=== PATIENT | female | born 1975 | race Caucasian/White ===

== ENCOUNTER → 2023-05-27 08:04 | Outpatient (REF) | payer BC, SELFPAY | LOC: WDC 08:04 | PROVIDERS: ATTENDING PHYSICIAN Obstetrics & Gynecology Gynecology; FAMILY PHYSICIAN Family Medicine | DX: R92.2 Inconclusive mammogram (principal) | CPT/HCPCS: 76641 ==

== ENCOUNTER → 2023-07-20 07:59 | Outpatient (REF) | payer BC, SELFPAY | LOC: HWRAD 07:59 | PROVIDERS: ATTENDING PHYSICIAN Family Medicine | DX: G44.52 New daily persistent headache (NDPH) (principal) | CPT/HCPCS: 70450 ==

== ENCOUNTER → 2023-11-09 12:00 | Outpatient (REF) | payer BC, SELFPAY | LOC: DHSLP 12:00 | PROVIDERS: ATTENDING PHYSICIAN Internal Medicine Critical Care Medicine; FAMILY PHYSICIAN Family Medicine | DX: G47.19 Other hypersomnia (principal); R06.83 Snoring | CPT/HCPCS: 95800 ==

== ENCOUNTER → 2023-12-21 14:19 | Outpatient (REF) | payer BC, SELFPAY | LOC: WDC 14:19 | PROVIDERS: ATTENDING PHYSICIAN Obstetrics & Gynecology Gynecology; FAMILY PHYSICIAN Family Medicine | DX: Z12.31 Encounter for screening mammogram for malignant neoplasm of breast (principal); R92.8 Other abnormal and inconclusive findings on diagnostic imaging of breast | CPT/HCPCS: 76642; 77063; 77067 ==

== ENCOUNTER → 2023-12-31 08:19 | Outpatient (REF) | payer BC, SELFPAY | LOC: WDC 08:19 | PROVIDERS: ATTENDING PHYSICIAN Obstetrics & Gynecology Gynecology; FAMILY PHYSICIAN Family Medicine | DX: R92.8 Other abnormal and inconclusive findings on diagnostic imaging of breast (principal) | CPT/HCPCS: 76642 ==

== ENCOUNTER → 2024-01-11 08:10 | Outpatient (REF) | payer BC, SELFPAY ==
--- NOTE | 2024-01-11 13:33 | OID.BR.INTR ---
[facility] - Initial
- -
Date of Contact: 01/11/24
Met with patient. Patient given written information on navigator services available at [facility]. Will follow up as needed per protocol.
== END ==
LOC: WDC 08:10
PROVIDERS: ATTENDING PHYSICIAN Obstetrics & Gynecology Gynecology; FAMILY PHYSICIAN Family Medicine
DX: N63.22 Unspecified lump in the left breast, upper inner quadrant (principal)
CPT/HCPCS: 88305; 19083; 88341; 88342; A4648

== ENCOUNTER → 2024-02-08 08:42 | Outpatient (REF) | payer BC, SELFPAY | LOC: RAD 08:42 | PROVIDERS: ATTENDING PHYSICIAN Family Medicine | DX: M54.2 Cervicalgia (principal) | CPT/HCPCS: 76536 ==

== ENCOUNTER 2024-03-11 02:30 | Emergency (ER) | payer BC, SELFPAY ==
[2024-03-11 02:30] VITALS: BMI 28.7
[2024-03-11 02:32] VITALS: BP 135/99
--- NOTE | 2024-03-11 03:55 | ED.GENMED ---
History of Present Illness
General
Chief Complaint: Abdominal Symptoms
Source: patient
Exam Limitations: none
Time Seen by Provider: 03/11/24 03:48
Nursing documentation reviewed up to this point in time: agreed with
History of Present Illness
History of Present Illness:
This is a 48-year-old woman who has been maintained on Zepbound for weight loss for a number of months. Maintained on 7.5 mg for at least the past 2 months but then titrated up to 10 mg earlier this week. She states almost immediately after 10 mg
injection on Wednesday, March 07 she began to feel somewhat dizzy but then developed nausea the following day on Wednesday with intractable vomiting that began March 09. She did pass a loose stool on as well as several loose
stools throughout the day yesterday. She denies hematemesis nor hematochezia. She does admit to generalized crampy abdominal pain and feeling bloated. She has not had a fever nor chills, no back pain, no dysuria and urgency and or hematuria. No
history of similar episodes in the past and no close contacts with similar symptoms.
No recent travel nor recent antibiotic use.
She denies risk of .
Along with Zepbound she is maintained on famotidine 40 mg and Zoloft 75 mg. With onset of nausea she has not taken her Zoloft for the past 5 days.
She did take Zofran 8 mg prior to arrival without relief of nausea.
Past History
Past History
ED Past Medical History: GERD, Psychiatric and Other (Obesity)
ED Past Surgical History: None
Social History
Tobacco: Non-smoker
Personal:
Living: with family
Employment: Employed
Family History
Family History: Other (Noncontributory)
Phy Exam
Physical Exam
Physical Exam:
GENERAL: 48-year-old woman appears her stated age, awake and alert, appears in mild to moderate distress related to pain.
EYE: anicteric
NECK: Supple, nontender, no meningismus, no significant adenopathy.
ENT: posterior pharynx is clear, oral mucosa is minimally dry. No rhinorrhea.
CARDIAC: Regular rate and rhythm. no murmur.
LUNGS: Clear breath sounds bilaterally, no acute respiratory distress, no wheezes/rales/rhonchi
ABDOMEN: Soft, mildly distended, moderate generalized tenderness to palpation, no r/g, no cvat. normoactive BS.
NEUROLOGICAL: Alert and oriented x3, no focal neuro deficits. Gait is steady.
SKIN: Warm and dry, normal color, skin intact. No rash.
MUSCULOSKELETAL: No C/C/E. peripheral pulses are full and equal b/l. No palpable tenderness.
PSYCH: Normal and appropriate interaction.
Course
Orders/Labs/Results
Orders:
Orders
03/11/24 03:54
0.9% Sodium Chloride 1000 ml [Nss] 1,000 ml IV BOLUS
Diphenhydramine [Benadryl] 25 mg IV NOW STA
Prochlorperazine [Compazine] 10 mg IV NOW STA
Test Result ONCE
03/11/24 03:55
CT Abd/pelvis W Iv Cont Urgent
Comment:
Reason For Exam: gen abd pain, N/V/D
Urinalysis Reflex To Culture Urgent
03/11/24 04:16
Complete Blood Count/With Diff Urgent
Comprehensive Metabolic Panel Urgent
HCG, Serum Qualitative Screen Urgent
Lactic Acid Urgent
Lipase Urgent
Abnormal Lab Results
03/11/24
04:16
Absolute Neuts (auto) 7.4 H 10^3/uL
(1.4-6.5)
Absolute Lymphs (auto) 1.0 L 10^3/uL
(1.2-3.4)
Absolute Monos (auto) 0.7 H 10^3/uL
(0.1-0.6)
Neutrophils % 80.0 H %
(42.2-75.2)
Lymphocytes % 10.3 L %
(20.5-51.1)
Alkaline Phosphatase 34 L U/L
(38-126)
03/11/24 04:16
03/11/24 04:16
Vital Signs
Initial and Last Documented VS:
Initial Vital Signs
Pulse Resp BP Pulse Ox
116 24 135/99 99
03/11/24 02:32 03/11/24 02:32 03/11/24 02:32 03/11/24 02:32
Last Documented Vital Signs
Pulse Resp BP Pulse Ox
116 18 112/74 98
03/11/24 02:32 03/11/24 04:36 03/11/24 04:36 03/11/24 04:36
MDM/Problems Addressed
Differential Diagnosis Includes:
Concern for adverse reaction to Zepbound, acute gastroenteritis, acute colitis, small bowel obstruction, dehydration, electrolyte abnormality, acute kidney injury.
Will initiate IV fluids, IV Compazine for nausea.
Will check labs and will plan for CT abdomen pelvis with IV contrast.
*Radiology
Radiology exam reviewed: radiology read reviewed
*Pulse Oximetry
Patient hypoxic: no
*Critical Care Note
Total Time (30-74mins, 75-104mins- exclusive of procedures): Not Applicable
Update Note
Update Note:
Labs are reassuring with normal white blood cell count, unremarkable chemistries.
CAT scan shows acute gastroenteritis without obstruction or perforation. Normal appendix, no diverticulitis.
I suspect viral versus foodborne gastroenteritis. I am not convinced that symptoms are related to Zepbound. Nonetheless, recommend she hold off on Zepbound at least over the next week perhaps 2 weeks and then return to 7.5 mg weekly.
Recommend limiting diet to clear liquids over the next 1 to 2 days, slowly advance to soft bland foods. Brat diet discussed.
Will prescribe Compazine for as needed nausea and recommend she take [id number] Imodium for as needed diarrhea.
Prompt follow-up with PCP for recheck.
ED Attending Note
-
Portions of this chart may have been created with voice recognition software.� Occasional wrong word or��sound alike� substitutions may have occurred due to the inherent limitations of voice recognition software.
Discharge Plan
Departure
Patient Disposition: Home (Routine Discharge)
Date of Disposition: 03/11/24
Time of Disposition: 06:08
Patient with high blood pressure during this ER visit?: No
Condition: Good
Discharge Problem:
Acute gastroenteritis
Instructions: Viral gastroenteritis in adults, Clear Liquid Diet
Prescriptions:
New
prochlorperazine maleate [Compazine] 10 mg tablet
10 mg PO Q6H PRN (Reason: nausea and vomiting) Qty: 14 0RF
No Action
famotidine 40 mg Tablet
40 mg PO DAILY
Zepbound
Zoloft
75 mg PO DAILY
Referrals:
Deanna Cha MD [Family Provider] - Call in 1-3 days for appt
Interventions
Interventions:
*Risk Screen - Suicide Last Done: 03/11/24 02:32
*General Assessment Last Done: 03/11/24 02:32
*Neglect/Abuse Screening Last Done: 03/11/24 02:32
ED- Fall Risk Assessment Last Done: 03/11/24 03:43
*ED COVID-19 Vaccine History Last Done: 03/11/24 03:43
YJ-Hlppji-Jgtznhatzj Assessment Last Done: 03/11/24 03:43
Discharge Date and Time
Print Language: HEBREW
[2024-03-11] MEDS: NSS 1000 IV (04:12)
[2024-03-11] MEDS: BENADRYL 25 MG IV (04:12)
[2024-03-11] MEDS: COMPAZINE 10 MG IV (04:13)
[2024-03-11 04:29] LABS: % Basophils 0.4 % (0-2); % Eosinophils 1.1 % (0-6); % Immature Granulocytes 0.3 % (0-0.5); % Lymphocytes 10.3 % (20.5-51.1); % Monocytes 7.9 % (1.7-9.3); Absolute Eosinophils 0.1 10^3/uL (0-0.7); Absolute Monocytes 0.7 10^3/uL (0.1-0.6); Absolute Neutrophils 7.4 10^3/uL (1.4-6.5); Hematocrit 39.6 % (37.0-47.0); Hemoglobin 13.5 g/dL (12.0-16.0); Mean Corp Hgb Conc. 34.1 g/dL (33.0-37.0); Mean Corpuscular Hgb 29.8 pg (27.0-31.0); Mean Corpuscular Volume 87.4 fL (81.0-99.0); Mean Platelet Volume 9.4 fL (7.4-10.4); Nucleated Red Blood Cells % 0 %; Platelet Count 275 10^3/uL (130-400); Red Blood Cell Count 4.53 10^6/uL (4.20-5.40); White Blood Cell Count 9.3 10^3/uL (4.8-10.8)
[2024-03-11 04:36] VITALS: BP 112/74
[2024-03-11 04:42] LABS: Lactic Acid 1.1 mmol/L (0.7-2.0)
[2024-03-11 04:44] LABS: HCG, Serum Qualitative Screen Negative
[2024-03-11 04:45] LABS: ALT (SGPT) 15 U/L (0-35); AST (SGOT) 23 U/L (14-36); Albumin 4.4 g/dl (3.5-5.0); Alkaline Phosphatase 34 U/L (38-126); Blood Urea Nitrogen 14 mg/dl (7-17); Calcium 9.9 mg/dl (8.4-10.2); Carbon Dioxide 22 mmol/L (22-30); Chloride 107 mmol/L (98-107); Estimated Creatinine Clearance 96 ml/min; Glucose 97 mg/dl (70-99); Lipase 71 U/L (23-300); Potassium 4.1 mmol/L (3.5-5.1); Sodium 141 mmol/L (135-145); Total Bilirubin 0.5 mg/dl (0.2-1.3); eGFR > 60.00
[2024-03-11 06:07] VITALS: BP 104/72
== END 2024-03-11 06:10 | disposition home or self-care (01) ==
LOC: EMR 02:30
PROVIDERS: EMERGENCY PHYSICIAN Emergency Medicine; FAMILY PHYSICIAN Hospitalist
DX: K52.9 Noninfective gastroenteritis and colitis, unspecified (principal); K21.9 Gastro-esophageal reflux disease without esophagitis; Z79.899 Other long term (current) drug therapy
CPT/HCPCS: 74177; 80053; 83605; 83690; 84703; 85025; 96374; 96375; 99284; Q9967

== ENCOUNTER → 2024-09-22 12:54 | Outpatient (REF) | payer BC, SELFPAY | LOC: WDC 12:54 | PROVIDERS: ATTENDING PHYSICIAN Obstetrics & Gynecology Gynecology; FAMILY PHYSICIAN Hospitalist | DX: R92.2 Inconclusive mammogram (principal) | CPT/HCPCS: 76641 ==

== ENCOUNTER → 2024-12-21 15:08 | Outpatient (REF) | payer BC, SELFPAY | LOC: WDC 15:08 | PROVIDERS: ATTENDING PHYSICIAN Obstetrics & Gynecology Gynecology | DX: Z12.31 Encounter for screening mammogram for malignant neoplasm of breast (principal) | CPT/HCPCS: 77063; 77067 ==

== ENCOUNTER 2025-01-04 12:51 | Emergency (ER) | payer BC, SELFPAY ==
[2025-01-04 12:52] VITALS: BP 130/80
[2025-01-04 13:06] LABS: Hematocrit 34.4 % (37.0-47.0); Hemoglobin 11.4 g/dL (12.0-16.0); Mean Corp Hgb Conc. 33.1 g/dL (33.0-37.0); Mean Corpuscular Volume 83.3 fL (81.0-99.0); Nucleated Red Blood Cells % 0 %; Platelet Count 222 10^3/uL (130-400); Red Cell Dist. Width 13.3 % (11.5-14.5)
[2025-01-04 13:28] LABS: HCG, Serum Qualitative Screen Negative
[2025-01-04 13:30] LABS: ALT (SGPT) 13 U/L (0-35); AST (SGOT) 17 U/L (14-36); Albumin 3.9 g/dl (3.5-5.0); Alkaline Phosphatase 35 U/L (38-126); Blood Urea Nitrogen 10 mg/dl (7-17); Calcium 9.5 mg/dl (8.4-10.2); Carbon Dioxide 26 mmol/L (22-30); Chloride 108 mmol/L (98-107); Glucose 94 mg/dl (70-99); Potassium 3.9 mmol/L (3.5-5.1); Sodium 140 mmol/L (135-145); Total Protein 6.8 g/dl (6.3-8.2); eGFR > 60.00
[2025-01-04 13:41] LABS: Troponin I < 0.012 ng/ml
[2025-01-04 13:45] VITALS: BP 121/87
--- NOTE | 2025-01-04 13:59 | ED.GENMED ---
History of Present Illness
<Yfn Greene MD - Last Filed: 01/04/25 16:29>
General
Chief Complaint: Chest Problem
Source: patient
Exam Limitations: none
Time Seen by Provider: 01/04/25 13:59
History of Present Illness
History of Present Illness:
49-year-old female started with COVID-like symptoms congestion runny nose achy 6 days ago. Near that time she also developed numbness in her left lateral hand and some pain at the left shoulder and pain with movement of the left arm. Some chest
pain with coughing.
Past History
<Yfn Greene MD - Last Filed: 01/04/25 16:29>
Past History
ED Past Medical History: GERD, Psychiatric and Other (Obesity)
ED Past Surgical History: None
Social History
Tobacco: Non-smoker
Personal:
Living: with family
Employment: Employed
Family History
Family History: Other (Noncontributory)
Review of Systems
<Yfn Greene MD - Last Filed: 01/04/25 16:29>
Review of Systems
All Other Systems: Not applicable
Respiratory: Reports cough
Cardiac: Denies syncope
ABD/GI: Reports no symptoms
Phy Exam
<Yfn Greene MD - Last Filed: 01/04/25 16:29>
Physical Exam
Physical Exam:
GENERAL: Alert and oriented in no apparent distress
EYE: Orbits normal.
NECK: Supple.
ENT: Pharynx without erythema
CARDIAC: Regular rate and rhythm without any obvious murmurs.
LUNGS: Clear breath sounds,normal
ABDOMEN: Soft, without focal tenderness or distention
NEUROLOGICAL: Alert and oriented , grossly non-focal
SKIN: Warm and dry, no rash or lesion, no discoloration, skin intact.
MUSCULOSKELETAL: No edema,no deformity.Good color
PSYCH: Normal and appropriate interaction.
Course
<Yfn Greene MD - Last Filed: 01/04/25 16:29>
Orders/Labs/Results
Orders:
Orders
01/04/25 12:52
EKG [Electrocardiogram (*1)] Urgent
Reason for Study: Chest Pain
01/04/25 12:53
EKG- Treatment ONCE
01/04/25 12:54
Test Result ONCE
01/04/25 12:59
Complete Blood Count/With Diff Urgent
Comprehensive Metabolic Panel Urgent
HCG, Serum Qualitative Screen Urgent
Troponin I Urgent
01/04/25 14:08
CXR2 [CR Chest - 2 Views ] Urgent
Comment:
Reason For Exam: cough. covid. radiculopathy
01/04/25 14:38
D-Dimer Urgent
01/04/25 16:28
CT Cervical Spine W/o Iv Contr Urgent
Comment:
Reason For Exam: Left neck pain with radiculopathy
Cardiac Monitoring- Treatment ONCE
01/04/25 18:40
Ketorolac [Toradol] 15 mg .ROUTE .STK-MED ONE
01/04/25 19:19
Dexamethasone Sod Phosphate [Decadron] 8 mg IV NOW STA
01/04/25 19:33
MR Cervical Spine Without Urgent
Comment:
Reason For Exam: Radiculopathy/left arm weakness
Recent pill cam endoscopy?: No
01/04/25 19:35
Dexamethasone Sod Phosphate [Decadron] 6 mg IV NOW STA
Abnormal Lab Results
01/04/25
12:59
RBC 4.13 L 10^6/uL
(4.20-5.40)
Hgb 11.4 L g/dL
(12.0-16.0)
Hct 34.4 L %
(37.0-47.0)
Chloride 108 H mmol/L
(98-107)
Alkaline Phosphatase 35 L U/L
(38-126)
01/04/25 12:59
01/04/25 12:59
Vital Signs
Initial and Last Documented VS:
Initial Vital Signs
Temp Pulse Resp BP Pulse Ox
98.2 F 86 16 130/80 100
01/04/25 12:52 01/04/25 12:52 01/04/25 12:52 01/04/25 12:52 01/04/25 12:52
Last Documented Vital Signs
Temp Pulse Resp BP Pulse Ox
98.2 F 79 16 121/86 98
01/04/25 12:52 01/04/25 14:15 01/04/25 14:15 01/04/25 14:00 01/04/25 14:15
Yisellt;Rangel Mooney, DO - Last Filed: 01/04/25 23:33>
Orders/Labs/Results
Orders:
Orders
01/04/25 12:52
EKG [Electrocardiogram (*1)] Urgent
Reason for Study: Chest Pain
01/04/25 12:53
EKG- Treatment ONCE
01/04/25 12:54
Test Result ONCE
01/04/25 12:59
Complete Blood Count/With Diff Urgent
Comprehensive Metabolic Panel Urgent
HCG, Serum Qualitative Screen Urgent
Troponin I Urgent
01/04/25 14:08
CXR2 [CR Chest - 2 Views ] Urgent
Comment:
Reason For Exam: cough. covid. radiculopathy
01/04/25 14:38
D-Dimer Urgent
01/04/25 16:28
CT Cervical Spine W/o Iv Contr Urgent
Comment:
Reason For Exam: Left neck pain with radiculopathy
Cardiac Monitoring- Treatment ONCE
01/04/25 18:40
Ketorolac [Toradol] 15 mg .ROUTE .STK-MED ONE
01/04/25 19:19
Dexamethasone Sod Phosphate [Decadron] 8 mg IV NOW STA
01/04/25 19:33
MR Cervical Spine Without Urgent
Comment:
Reason For Exam: Radiculopathy/left arm weakness
Recent pill cam endoscopy?: No
01/04/25 19:35
Dexamethasone Sod Phosphate [Decadron] 6 mg IV NOW STA
Abnormal Lab Results
01/04/25
12:59
RBC 4.13 L 10^6/uL
(4.20-5.40)
Hgb 11.4 L g/dL
(12.0-16.0)
Hct 34.4 L %
(37.0-47.0)
Chloride 108 H mmol/L
(98-107)
Alkaline Phosphatase 35 L U/L
(38-126)
01/04/25 12:59
01/04/25 12:59
Vital Signs
Initial and Last Documented VS:
Initial Vital Signs
Temp Pulse Resp BP Pulse Ox
98.2 F 86 16 130/80 100
01/04/25 12:52 01/04/25 12:52 01/04/25 12:52 01/04/25 12:52 01/04/25 12:52
Last Documented Vital Signs
Temp Pulse Resp BP Pulse Ox
98.2 F 79 16 121/86 98
01/04/25 12:52 01/04/25 14:15 01/04/25 14:15 01/04/25 14:00 01/04/25 14:15
<Yfn Greene MD - Last Filed: 01/04/25 16:29>
*Pulse Oximetry
SaO2: 100
Oxygen Mode of Delivery: Room air
Patient hypoxic: no
*EKG
Interpreted by ED Provider?: Yes
Interpretation: normal
Comparison EKG: no comparison EKG present
Heart Rate: 80
Rate: normal
Rhythm: sinus
[place]: normal axis
Interval: normal interval
QRS Pattern: normal QRS
Ischemia: no ischemia
<Rangel Mooney DO - Last Filed: 01/04/25 23:33>
*Radiology
Radiology exam reviewed: radiology read reviewed
*Critical Care Note
Total Time (30-74mins, 75-104mins- exclusive of procedures): Not Applicable
<Yfn Greene MD - Last Filed: 01/04/25 16:29>
Update Note
Update Note:
1630... Patient rechecked. Remains clinically stable and nontoxic. Reevaluated reexam and reviewed history. Patient she stated the left arm symptoms started 3 to 4 days before her COVID symptoms started. COVID symptoms started 6 days ago. This
has been going on for about 10 days. She has had ongoing pains. 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 On reevaluation she is very nontoxic she is in no distress. Cardiac testing is negative. Negative D-dimer. Negative chest
x-ray. Stable from a COVID standpoint. With ongoing weakness with nuclear physicist although biceps triceps all intact. Will get a CT scan of the cervical spine
<Rangel Mooney DO - Last Filed: 01/04/25 23:33>
Update Note
Update Note:
1630... Patient rechecked. Remains clinically stable and nontoxic. Reevaluated reexam and reviewed history. Patient she stated the left arm symptoms started 3 to 4 days before her COVID symptoms started. COVID symptoms started 6 days ago. This
has been going on for about 10 days. She has had ongoing pains. 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 On reevaluation she is very nontoxic she is in no distress. Cardiac testing is negative. Negative D-dimer. Negative chest
x-ray. Stable from a COVID standpoint. With ongoing weakness with nuclear physicist although biceps triceps all intact. Will get a CT scan of the cervical spine
2199: MRI report reviewed. Essentially patient has findings consistent with a left-sided cervical radiculopathy. I communicated findings with Dr. Cruz at [facility]. They will attempt to get the patient appointment tomorrow.
Demographic information provided to the [facility] who will pass this along to the appropriate office staff. Patient will be discharged with Medrol Dosepak.
ED Attending Note
<Yfn Greene MD - Last Filed: 01/04/25 16:29>
-
Portions of this chart may have been created with voice recognition software.� Occasional wrong word or��sound alike� substitutions may have occurred due to the inherent limitations of voice recognition software.
Discharge Plan
Departure
Patient Disposition: Home (Routine Discharge)
Date of Disposition: 01/04/25
Time of Disposition: 22:10
Patient with high blood pressure during this ER visit?: No
Condition: Good
Discharge Problem:
Cervical radiculopathy
Instructions: Radiculopathy of the neck and back (including sciatica) (DC)
Prescriptions:
New
methylprednisolone [Medrol (Rubens)] 4 mg tablets,dose pack
See Rx Instructions .ROUTE .COMPLEX Qty: 21 0RF
Rx Instructions:
for 6 days
No Action
famotidine 40 mg Tablet
40 mg PO DAILY
Zepbound
Zoloft
75 mg PO DAILY
prochlorperazine maleate [Compazine] 10 mg tablet
10 mg PO Q6H PRN (Reason: nausea and vomiting) Qty: 14 0RF
Referrals:
UNKNOWN - PT NOT,INTERVIEWE [Unknown Provider]
Activity Restrictions/Additional Instructions:
We discussed your diagnosis with Dr. Nomi Cruz at [facility]. His office phone number is
Interventions
Interventions:
*Risk Screen - Suicide Last Done: 01/04/25 12:52
*General Assessment Last Done: 01/04/25 16:49
*Neglect/Abuse Screening Last Done: 01/04/25 12:52
*ED- Fall Risk Assessment Last Done: 01/04/25 16:49
*Nursing Disposition Last Done: 01/04/25 22:21
ED- Cardiac Assessment Last Done: 01/04/25 16:48
ED- Pulmonary Assessment Last Done: 01/04/25 16:48
Discharge Date and Time
Print Language: SERBIAN
[2025-01-04 14:00] VITALS: BP 121/86
[2025-01-04 15:03] LABS: D-Dimer < 0.27 ug/mlFEU (0.00-0.50)
[2025-01-04] MEDS: DECADRON 6 MG IV (20:16)
== END 2025-01-04 22:21 | disposition home or self-care (01) ==
LOC: EMR 12:51
PROVIDERS: Emergency Medicine; EMERGENCY PHYSICIAN Emergency Medicine; FAMILY PHYSICIAN Hospitalist
DX: M54.12 Radiculopathy, cervical region (principal)
CPT/HCPCS: 96374; 99285; 71046; 72125; 72141; 80053; 84484; 84703; 85025; 85379; 93005

== ENCOUNTER → 2025-01-25 08:50 | Outpatient (REF) | payer BC, SELFPAY | LOC: EMG 08:50 | PROVIDERS: ATTENDING PHYSICIAN Physician Assistant; FAMILY PHYSICIAN Hospitalist | DX: M54.12 Radiculopathy, cervical region (principal); M50.20 Other cervical disc displacement, unspecified cervical region; R20.0 Anesthesia of skin | CPT/HCPCS: 95886; 95909 ==

== ENCOUNTER 2025-03-08 06:22 | Day surgery (SDC) | payer BC, SELFPAY | END 2025-03-08 12:39 | disposition home or self-care (01) | LOC: GI 06:22 | PROVIDERS: ATTENDING PHYSICIAN Internal Medicine Gastroenterology | DX: Z12.11 Encounter for screening for malignant neoplasm of colon (principal) | CPT/HCPCS: G0121 ==

== ENCOUNTER → 2025-03-13 07:54 | Outpatient (REF) | payer BC, SELFPAY | LOC: WDC 07:54 | PROVIDERS: ATTENDING PHYSICIAN Obstetrics & Gynecology Gynecology; FAMILY PHYSICIAN Hospitalist | DX: R92.8 Other abnormal and inconclusive findings on diagnostic imaging of breast (principal) | CPT/HCPCS: 76642 ==